=== PATIENT | female | born 1950 | race Two or more races ===

== ENCOUNTER 2023-03-04 11:08 | Inpatient (IN) | payer OTHER ==
[~2023-03-04] VITALS: Ht 162.6 cm; Wt 102.2 kg
[2023-03-04 11:58] LABS: Basophils # (auto) 0 10 ^3/uL (0-0.2); Basophils % (auto) 0.4 % (0.0-2.0); Eosinophils # (auto) 0 10 ^3/uL (0-0.8); Eosinophils % (auto) 0.5 % (0.0-7.0); Hematocrit 42.3 % (36.0-46.0); Lymphocytes # (auto) 1.4 10 ^3/uL (0.4-5.4); Lymphocytes % (auto) 24.3 % (10.0-50.0); Mean Corpuscular Hemoglobin 30.6 pg (28.0-32.0); Mean Corpuscular Hgb Conc. 33.1 g/dL (32.0-36.0); Mean Corpuscular Volume 92.5 fL (80.0-100.0); Monocytes # (auto) 0.3 10 ^3/uL (0-1.3); Monocytes % (auto) 4.6 % (0.0-12.0); Neutrophils # (auto) 4.2 10 ^3/uL (1.6-8.6); Neutrophils % (auto) 70.2 % (37.0-80.0); Nucleated Red Blood Cells % 0.1 %; Red Blood Cells 4.57 10^6/uL (4.0-5.20); Red Cell Distribution Width 13.6 % (11.8-14.3); White Blood Cell 5.9 10^3/uL (4.4-10.8)
[2023-03-04 12:14] LABS: Alanine Aminotransferase 14 U/L (7-40); Albumin 4.7 g/dL (3.2-4.8); Alkaline Phosphatase 78 U/L (46-116); Anion Gap 10 (5-15); Aspartate Aminotransferase 19 U/L (13-40); BUN/Creatinine Ratio 11.8 (10.0-20.0); Bilirubin, Total 0.5 mg/dL (0.2-1.0); Blood Urea Nitrogen 9 mg/dL (9-23); Calcium 9.9 mg/dL (8.7-10.4); Carbon Dioxide 27 mmol/L (20-30); Chloride 103 mmol/L (98-107); Glucose 105 mg/dL (74-106); Potassium 3.9 mmol/L (3.5-5.1); Sodium 140 mmol/L (136-145); Total Protein 6.8 g/dL (5.7-8.2)
[2023-03-04 12:42] LABS: INR 1.02 (0.9-1.15); Partial Thromboplastin Time 22.8 SEC (24.5-34.5); Prothrombin Time 10.7 sec (9.3-11.8)
[2023-03-04] MEDS ORDERED: ONDANSETRON HCL 4 MG/2 ML VIAL IV ONE (13:45)
[2023-03-04] MEDS ORDERED: MORPHINE SULFATE 4 MG/ML SYR/VIAL IV ONE (13:45)
[2023-03-04] MEDS ORDERED: LOSA50TA46 PO (14:57)
[2023-03-04] MEDS ORDERED: SERT-160 PO (14:57)
[2023-03-04] MEDS ORDERED: GABA-1250 PO (14:57)
[2023-03-04] MEDS ORDERED: AMLO1TAB22 PO (14:57)
[2023-03-04] MEDS ORDERED: MET25T PO (14:57)
[2023-03-04] MEDS ORDERED: ATOR40TA52 PO (14:57)
[2023-03-04] MEDS ORDERED: ACETAMINOPHEN 325 MG TAB PO PRN (15:00)
[2023-03-04] MEDS ORDERED: ONDANSETRON HCL 4 MG/2 ML VIAL IV PRN (15:00)
[2023-03-04] MEDS ORDERED: PANTOPRAZOLE 40 MG/10 ML VIAL INJ IV ONE (15:15)
[2023-03-04 15:26] LABS: LDL Cholesterol 101 mg/dL (< 100); Triglycerides 191 mg/dL (< 150)
[2023-03-04 15:28] LABS: Cholesterol 188 mg/dL (< 200); HDL Cholesterol 59 mg/dL (40-59)
[2023-03-04] MEDS: SODIUM CHLORIDE 0.9% 1,000 ML IV SCH (16:06)
[2023-03-04] MEDS: HYDROcodone-ACET 5/325MG TAB PO PRN ×2 (16:07→20:05)
[2023-03-04 22:00] VITALS: BP 148/71; PULSE 64; RESP 14; TEMP 98.2; O2SAT 100
[2023-03-04] MEDS: amLODIPine BESYLATE 5 MG TAB PO SCH (22:38)
[2023-03-04] MEDS: METOPROLOL TARTRATE 25 MG TAB PO SCH (22:39)
[2023-03-04] MEDS: LOSARTAN POTASSIUM 50 MG TAB PO SCH (22:39)
[2023-03-05] VITALS (7 sets, daily range): BP systolic 100–149; BP diastolic 51–85; PULSE 57–74; RESP 14–19; TEMP 97.8–98.1; O2SAT 94–99
[2023-03-05] MEDS: HYDROcodone-ACET 5/325MG TAB PO PRN ×3 (00:19→08:46)
[2023-03-05] MEDS: SODIUM CHLORIDE 0.9% 1,000 ML IV SCH (04:20)
[2023-03-05 06:26] LABS: Urine Bacteria NONE SEEN /hpf (None Seen); Urine Blood Negative /uL (Negative); Urine Clarity HAZY (Clear); Urine Color Yellow (Yellow); Urine Hyaline Cast FEW /lpf (0 - 2); Urine Mucus FEW (None Seen); Urine Protein, UAD 1+ (Negative); Urine Specific Gravity 1.018 (1.001-1.035); Urine Urobilinogen Normal (Negative); Urine WBC 404 /hpf (0 - 5); Urine pH 6.5 (5.0-8.0)
[2023-03-05 07:01] LABS: Basophils # (auto) 0 10 ^3/uL (0-0.2); Basophils % (auto) 0.2 % (0.0-2.0); Eosinophils # (auto) 0 10 ^3/uL (0-0.8); Eosinophils % (auto) 0.6 % (0.0-7.0); Hematocrit 35.6 % (36.0-46.0); Hemoglobin 11.9 g/dL (12.2-16.2); Lymphocytes # (auto) 1.4 10 ^3/uL (0.4-5.4); Lymphocytes % (auto) 22.1 % (10.0-50.0); Mean Corpuscular Hemoglobin 30.8 pg (28.0-32.0); Mean Corpuscular Hgb Conc. 33.3 g/dL (32.0-36.0); Mean Corpuscular Volume 92.3 fL (80.0-100.0); Monocytes # (auto) 0.4 10 ^3/uL (0-1.3); Monocytes % (auto) 6.3 % (0.0-12.0); Neutrophils # (auto) 4.5 10 ^3/uL (1.6-8.6); Neutrophils % (auto) 70.8 % (37.0-80.0); Nucleated Red Blood Cells % 0.1 %; Red Blood Cells 3.85 10^6/uL (4.0-5.20); Red Cell Distribution Width 13.6 % (11.8-14.3); White Blood Cell 6.4 10^3/uL (4.4-10.8)
[2023-03-05 07:22] LABS: Alanine Aminotransferase 10 U/L (7-40); Albumin 3.9 g/dL (3.2-4.8); Alkaline Phosphatase 64 U/L (46-116); Anion Gap 7 (5-15); Aspartate Aminotransferase 17 U/L (13-40); BUN/Creatinine Ratio 20.3 (10.0-20.0); Blood Urea Nitrogen 14 mg/dL (9-23); Calcium 8.9 mg/dL (8.5-10.1); Carbon Dioxide 26 mmol/L (20-30); Chloride 107 mmol/L (98-107); Glucose 100 mg/dL (74-106); Potassium 3.4 mmol/L (3.5-5.1); Sodium 140 mmol/L (136-145)
[2023-03-05 07:23] LABS: Bilirubin, Total 0.5 mg/dL (0.2-1.0); Total Protein 5.7 g/dL (5.7-8.2)
[2023-03-05] MEDS: PANTOPRAZOLE 40 MG/10 ML VIAL INJ IV SCH (08:46)
[2023-03-05] MEDS: SERTRALINE HCL 50 MG TAB PO SCH (08:47)
[2023-03-05] MEDS: LOSARTAN POTASSIUM 50 MG TAB PO SCH ×2 (08:47→21:35)
[2023-03-05] MEDS: GABAPENTIN 300 MG CAP PO SCH (08:47)
[2023-03-05] MEDS: METOPROLOL TARTRATE 25 MG TAB PO SCH ×2 (08:48→22:00)
[2023-03-05] MEDS: amLODIPine BESYLATE 5 MG TAB PO SCH ×2 (08:48→21:36)
[2023-03-05] MEDS ORDERED: BUPIVACAINE HCL 50 ML ONE (09:32)
[2023-03-05] MEDS ORDERED: GABAPENTIN 100 MG CAP ONE (09:40)
[2023-03-05] MEDS ORDERED: ACETAMINOPHEN IV 100 ML IV ONE (09:40)
[2023-03-05] MEDS ORDERED: CELECOXIB 100 MG CAP ONE (09:40)
[2023-03-05] MEDS ORDERED: ceFAZolin 1GM/50ML 100 ML IV ONE (09:41)
[2023-03-05] MEDS ORDERED: GABAPENTIN 100 MG CAP PO ONE (09:45)
[2023-03-05] MEDS ORDERED: CELECOXIB 100 MG CAP PO ONE (09:45)
[2023-03-05] MEDS ORDERED: ACETAMINOPHEN IV 1000 MG/100ML (10MG/ML) IV ONE (09:45)
[2023-03-05] MEDS ORDERED: GLYCOPYRROLATE 0.2 MG/ML 1ML VIAL ONE (09:59)
[2023-03-05] MEDS ORDERED: PROPOFOL 10 MG/ML 20 ML IV ONE (09:59)
[2023-03-05] MEDS ORDERED: LIDOCAINE 2% (LOCAL ANESTH.) PF 5ml SDV ONE (09:59)
[2023-03-05] MEDS ORDERED: ONDANSETRON HCL 4 MG/2 ML VIAL ONE (09:59)
[2023-03-05] MEDS ORDERED: DexAMETHasone SOD PHOS 10MG/1ML VIAL INJ ONE (09:59)
[2023-03-05] MEDS ORDERED: KETOROLAC TROMETH 30 MG/ML 1ML VIAL ONE (09:59)
[2023-03-05] MEDS ORDERED: ePHEDrine SULFATE 50 MG/ML AMP ONE (10:18)
[2023-03-05] MEDS ORDERED: ONDANSETRON HCL 4 MG/2 ML VIAL IV PRN (11:15)
[2023-03-05] MEDS ORDERED: ePHEDrine SULFATE 50 MG/ML AMP IV PRN (11:15)
[2023-03-05] MEDS ORDERED: HYDROmorphone HCL 2 MG/ML VL/or syr IV PRN (11:15)
[2023-03-05] MEDS ORDERED: oxyCODONE HCL 5MG TAB PO PRN (11:15)
[2023-03-05] MEDS ORDERED: FLUMAZENIL 0.1 MG/ML INJ 10ML MDV IV PRN (11:15)
[2023-03-05] MEDS ORDERED: NALOXONE HCL 0.4 MG/ML VIAL IV PRN (11:15)
[2023-03-05] MEDS ORDERED: fentaNYL CITRATE 100 MCG/2 ML VL IV PRN (11:15)
[2023-03-05] MEDS ORDERED: hydrALAZINE HCL 20 MG/ML VL IV PRN (11:15)
[2023-03-05] MEDS ORDERED: LABETALOL HCL 5 MG/ML 4ML SYRINGE IV PRN (11:15)
[2023-03-05] MEDS ORDERED: POTASSIUM CHL 20 Meq TABLET PO ONE (12:00)
[2023-03-05] MEDS ORDERED: MORPHINE SULFATE INJ 2 MG/ml SYRG IV PRN (12:00)
[2023-03-05] MEDS: ceFAZolin 1GM/50ML 50 ML IV SCH ×2 (13:32→21:36)
[2023-03-05] MEDS ORDERED: ATORVASTATIN 20 MG TAB PO SCH (22:00)
[2023-03-06 05:00] VITALS: BP 146/70; PULSE 63; RESP 19; TEMP 98.1; O2SAT 96
[2023-03-06] MEDS: ceFAZolin 1GM/50ML 50 ML IV SCH (05:28)
[2023-03-06] MEDS: HYDROcodone-ACET 5/325MG TAB PO PRN (05:39)
[2023-03-06 07:16] LABS: Basophils # (auto) 0 10 ^3/uL (0-0.2); Eosinophils # (auto) 0 10 ^3/uL (0-0.8); Eosinophils % (auto) 0.1 % (0.0-7.0); Hematocrit 29.5 % (36.0-46.0); Hemoglobin 8.7 g/dL (12.2-16.2); Lymphocytes # (auto) 1.1 10 ^3/uL (0.4-5.4); Mean Corpuscular Hgb Conc. 29.4 g/dL (32.0-36.0); Monocytes # (auto) 0.4 10 ^3/uL (0-1.3); Neutrophils # (auto) 3.6 10 ^3/uL (1.6-8.6); Nucleated Red Blood Cells % 0.1 %; White Blood Cell 5.2 10^3/uL (4.4-10.8)
[2023-03-06 07:19] LABS: Basophils % (auto) 0.3 % (0.0-2.0); Lymphocytes % (auto) 21.7 % (10.0-50.0); Mean Corpuscular Hemoglobin 31.1 pg (28.0-32.0); Mean Corpuscular Volume 105.9 fL (80.0-100.0); Monocytes % (auto) 8.6 % (0.0-12.0); Neutrophils % (auto) 69.3 % (37.0-80.0); Red Blood Cells 2.79 10^6/uL (4.0-5.20); Red Cell Distribution Width 14.6 % (11.8-14.3)
[2023-03-06 08:00] VITALS: PULSE 74; RESP 18; O2SAT 95
[2023-03-06 08:45] LABS: Chloride 107 mmol/L (98-107); Potassium 4.5 mmol/L (3.5-5.1); Sodium 142 mmol/L (136-145)
[2023-03-06 08:46] LABS: Anion Gap 7 (5-15); Calcium 9.5 mg/dL (8.5-10.1); Carbon Dioxide 28 mmol/L (20-30)
[2023-03-06 08:51] LABS: BUN/Creatinine Ratio 11.7 (10.0-20.0); Blood Urea Nitrogen 7 mg/dL (9-23); Glucose 89 mg/dL (74-106)
[2023-03-06 09:00] VITALS: BP 113/54; PULSE 58; RESP 18; TEMP 98.4; O2SAT 97
[2023-03-06 09:05] LABS: Magnesium 1.8 mg/dL (1.6-2.6)
[2023-03-06] MEDS: PANTOPRAZOLE 40 MG/10 ML VIAL INJ IV SCH (09:58)
[2023-03-06] MEDS: amLODIPine BESYLATE 5 MG TAB PO SCH (09:59)
[2023-03-06] MEDS: SERTRALINE HCL 50 MG TAB PO SCH (09:59)
[2023-03-06] MEDS: GABAPENTIN 300 MG CAP PO SCH (10:00)
[2023-03-06] MEDS: METOPROLOL TARTRATE 25 MG TAB PO SCH (10:00)
[2023-03-06] MEDS: LOSARTAN POTASSIUM 50 MG TAB PO SCH (10:00)
[2023-03-06] MEDS ORDERED: HYDR-4902 PO (11:04)
[2023-03-06] MEDS ORDERED: IBUP-1455 PO (11:04)
[2023-03-06] MEDS ORDERED: CEPH250C PO (11:07)
[2023-03-06 12:30] VITALS: BP 123/50; PULSE 50; RESP 18; TEMP 98.4; O2SAT 99
[2023-03-06 13:06] VITALS: BP 113/54; PULSE 60
== END 2023-03-06 14:48 | disposition home or self-care (01) | DRG 511 ==
LOC: ER 11:08 → EDBD 11:08 → OVERFLOW 14:56 → WEST WING 21:30
PROVIDERS: ADMIT Nurse Practitioner Family; ATTEND Internal Medicine Geriatric Medicine
PROC: 0RNP0ZZ Release Left Wrist Joint, Open Approach (ICD-10-PCS; 2023-03-05)
PROC: 0PSJ04Z Reposition Left Radius with Internal Fixation Device, Open Approach (ICD-10-PCS; principal; 2023-03-05 10:06)
DX: S52.572A Other intraarticular fracture of lower end of left radius, initial encounter for closed fracture (principal); N39.0 Urinary tract infection, site not specified; E78.5 Hyperlipidemia, unspecified; I10 Essential (primary) hypertension; S09.90XA Unspecified injury of head, initial encounter; W18.39XA Other fall on same level, initial encounter; E87.6 Hypokalemia; Z82.49 Family history of ischemic heart disease and other diseases of the circulatory system; Z83.3 Family history of diabetes mellitus; Z85.3 Personal history of malignant neoplasm of breast; Z90.13 Acquired absence of bilateral breasts and nipples; Y93.89 Activity, other specified; Y92.89 Other specified places as the place of occurrence of the external cause; Y99.8 Other external cause status
CPT/HCPCS: 36415; 70450; 71045; 73100; 73110; 76000; 80048; 80053; 80061; 81001; 83735; 85025; 85610; 85730; 86850; 86900; 86901; 93005; 97110; 97116; 97163; 97530; C9113; G0378; J0131; J0690; J1100; J1885; J2001; J2405; J2704; J3490